=== PATIENT | female | born 1950 | race Two or more races ===

== ENCOUNTER 2020-02-18 14:59 | Inpatient (IN) | payer MEDICARE, OTHER ==
[~2020-02-18] VITALS: Ht 165.1 cm; Wt 73.5 kg
[2020-02-18] MEDS ORDERED: metformin (15:01)
[2020-02-18] MEDS ORDERED: SODIUM CHLORIDE 0.9% 1,000 ML IV ONE (15:29)
[2020-02-18 15:49] LABS: BASOPHILS % 0.4 % (0.0-2.0); EOSINOPHILS % 0.1 % (0.0-5.0); HEMATOCRIT. 35.1 % (36.0-48.0); HEMOGLOBIN. 11.8 g/dL (12.0-16.0); LYMPHOCYTES % 27.3 % (20.0-50.0); MEAN CORPUSCULAR HEMOGLOBIN 29.9 pg (28.0-32.0); MEAN CORPUSCULAR VOLUME 89.2 fL (81.0-99.0); MONOCYTES % 8.9 % (2.0-8.0); NEUTROPHILS % 63.3 % (40.0-76.0); PLATELET 181 x1000/uL (130-400); RED BLOOD CELL COUNT 3.94 mill/uL (4.2-5.4); RED CELL DISTRIBUTION WIDTH 13.2 % (11.6-14.6)
[2020-02-18 15:54] LABS: CHLORIDE 108 mEq/L (98-107)
[2020-02-18 15:58] LABS: INR 0.9; PROTHROMBIN TIME 9.8 sec (9.6-11.0)
[2020-02-18] MEDS ORDERED: DILTIAZEM HCL 5MG/ML 5ML VIAL IV ONE (16:45)
[2020-02-18 23:00] VITALS: BP 141/56
[2020-02-18 23:30] VITALS: BP 141/56
[2020-02-19] VITALS (7 sets, daily range): BP systolic 103–126; BP diastolic 48–67
[2020-02-19] MEDS ORDERED: DEXTROSE 50% WATER 50ML SYRINGE IV PRN (00:15)
[2020-02-19 01:22] LABS: CREATINE KINASE 112 IU/L (26-192)
[2020-02-19 01:23] LABS: CREATINE KINASE MB FRACTION 1.3 ng/mL (0.5-3.6)
[2020-02-19] MEDS: ACETAMINOPHEN 650MG/20.3ML UDC PO PRN ×3 (02:06→20:10)
[2020-02-19] MEDS ORDERED: IBUP-2029 PO (02:39)
[2020-02-19] MEDS ORDERED: PIOG45TA62 PO (02:39)
[2020-02-19] MEDS ORDERED: PRAV80TA21 PO (02:39)
[2020-02-19] MEDS ORDERED: PRED10TA PO (02:39)
[2020-02-19] MEDS ORDERED: LISI2.5T47 PO (02:39)
[2020-02-19] MEDS ORDERED: BACL-141 PO (02:39)
[2020-02-19] MEDS ORDERED: METF-414 PO (02:39)
[2020-02-19] MEDS: BLOOD SUGAR DIAGNOSTIC STRIP TEST SCH ×4 (07:33→21:07)
[2020-02-19] MEDS: INSULIN LISPRO 100 UNITS/ML SUBCUT SCH ×4 (08:17→21:00)
[2020-02-19 08:44] LABS: BASOPHILS % 0.4 % (0.0-2.0); EOSINOPHILS % 0.5 % (0.0-5.0); HEMATOCRIT. 35.7 % (36.0-48.0); LYMPHOCYTES % 23.4 % (20.0-50.0); MEAN CORPUSCULAR HEMOGLOBIN 29.7 pg (28.0-32.0); MEAN CORPUSCULAR VOLUME 88.8 fL (81.0-99.0); MEAN PLATELET VOLUME 8.7 fl (7.4-10.4); MONOCYTES % 10.1 % (2.0-8.0); NEUTROPHILS % 65.6 % (40.0-76.0); PLATELET 162 x1000/uL (130-400); RED BLOOD CELL COUNT 4.02 mill/uL (4.2-5.4); RED CELL DISTRIBUTION WIDTH 13.4 % (11.6-14.6)
[2020-02-19 09:01] LABS: CHLORIDE 109 mEq/L (98-107)
[2020-02-19] MEDS: ENOXAPARIN 40MG/0.4ML SYR SUBCUT SCH (09:01)
[2020-02-19] MEDS: METOPROLOL TARTRATE 50MG TABLET PO SCH ×2 (09:01→21:07)
[2020-02-19] MEDS: PANTOPRAZOLE 40MG DR TABLET PO SCH (09:01)
[2020-02-19 09:09] LABS: LDL CHOLESTEROL 104 mg/dL (5-100)
[2020-02-19 09:10] LABS: CREATINE KINASE 90 IU/L (26-192); HDL CHOLESTEROL 73 mg/dL (40-59); T4 FREE 1.18 ng/dL (0.76-1.46)
[2020-02-19] MEDS ORDERED: CEFTRIAXONE 1 G PREMIX 50 ML IV SCH (10:15)
[2020-02-19] MEDS: CEFTRIAXONE 1,000 MG in DEXTROSE 5% WATER 50 ML IV SCH (11:15)
[2020-02-19] MEDS: METFORMIN HCL 500MG TABLET PO SCH ×2 (11:15→17:49)
[2020-02-19] MEDS: ASPIRIN 81MG TABLET PO SCH (11:17)
[2020-02-19] MEDS ORDERED: OMEP20CA14 PO (14:54)
[2020-02-19] MEDS ORDERED: TIZA4CAP6 PO (14:57)
[2020-02-19 16:17] LABS: CLARITY URINE CLOUDY (CLEAR); COLOR URINE YELLOW (YELLOW); KETONES URINE NEGATIVE (NEGATIVE); LEUKOCYTE ESTERASE URINE NEGATIVE (NEGATIVE); NITRITE URINE NEGATIVE (NEGATIVE); OCCULT BLOOD URINE NEGATIVE (NEGATIVE); PH URINE 5.5 (4.5-8.0); PROTEIN URINE 1+ (NEGATIVE); SPECIFIC GRAVITY URINE 1.016 (1.005-1.030)
[2020-02-19] MEDS: ATORVASTATIN CALCIUM 20MG TABLET PO SCH (21:06)
[2020-02-19] MEDS ORDERED: INSULIN GLARGINE UD 100 UNITS/ML SYR SUBCUT SCH (22:00)
[2020-02-20] VITALS: BP 95/42
[2020-02-20 04:00] VITALS: BP 118/84
[2020-02-20] MEDS: BLOOD SUGAR DIAGNOSTIC STRIP TEST SCH ×4 (07:16→20:27)
[2020-02-20 08:00] VITALS: BP 121/83
[2020-02-20] MEDS: PANTOPRAZOLE 40MG DR TABLET PO SCH (08:46)
[2020-02-20] MEDS: ASPIRIN 81MG TABLET PO SCH (08:46)
[2020-02-20] MEDS: METOPROLOL TARTRATE 50MG TABLET PO SCH ×2 (08:46→21:00)
[2020-02-20] MEDS: METFORMIN HCL 500MG TABLET PO SCH ×2 (08:46→17:44)
[2020-02-20] MEDS: ENOXAPARIN 40MG/0.4ML SYR SUBCUT SCH (08:46)
[2020-02-20] MEDS: INSULIN LISPRO 100 UNITS/ML SUBCUT SCH ×4 (08:47→21:46)
[2020-02-20] MEDS ORDERED: MEDICATION NOT ON FORMULARY EA (Pravastatin Sodium 80 MG) PO SCH (09:00)
[2020-02-20] MEDS ORDERED: OMEPRAZOLE 20MG CAPSULE EXTENDED RELEASE PO SCH (09:00)
[2020-02-20] MEDS ORDERED: ENOXAPARIN 30MG/0.3ML SYR SUBCUT SCH (10:30)
[2020-02-20 12:00] VITALS: BP 102/55
[2020-02-20] MEDS: DEXAMETHASONE 2MG TABLET PO SCH (12:43)
[2020-02-20] MEDS: CEFTRIAXONE 1,000 MG in DEXTROSE 5% WATER 50 ML IV SCH (12:44)
[2020-02-20 16:00] VITALS: BP 112/49
[2020-02-20 20:00] VITALS: BP 106/57
[2020-02-20] MEDS: ENOXAPARIN 80MG/0.8ML SYR SUBCUT SCH (21:43)
[2020-02-20] MEDS: ATORVASTATIN CALCIUM 20MG TABLET PO SCH (21:43)
[2020-02-21] VITALS: BP 117/56
[2020-02-21 04:00] VITALS: BP 122/66
[2020-02-21] MEDS: BLOOD SUGAR DIAGNOSTIC STRIP TEST SCH ×2 (06:39→12:16)
[2020-02-21 08:00] VITALS: BP 138/51
[2020-02-21] MEDS: INSULIN LISPRO 100 UNITS/ML SUBCUT SCH ×2 (08:10→12:27)
[2020-02-21] MEDS: METFORMIN HCL 500MG TABLET PO SCH (09:04)
[2020-02-21] MEDS: ASPIRIN 81MG TABLET PO SCH (09:04)
[2020-02-21] MEDS: DEXAMETHASONE 2MG TABLET PO SCH (09:05)
[2020-02-21] MEDS: PANTOPRAZOLE 40MG DR TABLET PO SCH (09:05)
[2020-02-21] MEDS: METOPROLOL TARTRATE 50MG TABLET PO SCH (09:06)
[2020-02-21] MEDS: ENOXAPARIN 80MG/0.8ML SYR SUBCUT SCH (09:07)
[2020-02-21] MEDS ORDERED: AZITHROMYCIN 250 MG TABLET PO SCH (10:30)
[2020-02-21 12:00] VITALS: BP 107/72
[2020-02-21] MEDS: CEFTRIAXONE 1,000 MG in DEXTROSE 5% WATER 50 ML IV SCH (12:04)
[2020-02-21] MEDS ORDERED: ALBU90AE INH (12:08)
[2020-02-21] MEDS ORDERED: ASPI-1497 MT (12:08)
[2020-02-21] MEDS ORDERED: METO-539 MT (12:08)
[2020-02-21] MEDS ORDERED: METF-414 MT (12:08)
[2020-02-21] MEDS ORDERED: P20 PO (12:08)
[2020-02-21] MEDS ORDERED: APIX5TAB MT (12:08)
[2020-02-21] MEDS ORDERED: FAMO-135 PO (12:08)
[2020-02-21 13:18] VITALS: BP 107/72
== END 2020-02-21 14:59 | disposition home or self-care (01) | DRG 177 ==
LOC: ER 14:59 → EDBEDREQ 17:27 → EDBEDREQTM 17:27 → EDBEDREQ 19:01 → EDBEDREQTM 19:01 → ENRESERV 19:51 → EDBEDREQ 20:14 → 5WST 20:16 → 7WST 02-19 01:20
PROVIDERS: ADMIT Internal Medicine; ATTEND Internal Medicine
DX: U07.1 COVID-19 (principal); N17.0 Acute kidney failure with tubular necrosis; R65.11 Systemic inflammatory response syndrome (SIRS) of non-infectious origin with acute organ dysfunction; J12.89 Other viral pneumonia; E44.1 Mild protein-calorie malnutrition; I47.1 Supraventricular tachycardia; G90.8 Other disorders of autonomic nervous system; E11.9 Type 2 diabetes mellitus without complications; E87.8 Other disorders of electrolyte and fluid balance, not elsewhere classified; I10 Essential (primary) hypertension; Z90.49 Acquired absence of other specified parts of digestive tract; Z79.84 Long term (current) use of oral hypoglycemic drugs; Z79.899 Other long term (current) drug therapy; Z68.27 Body mass index [BMI] 27.0-27.9, adult; R06.03 Acute respiratory distress
CPT/HCPCS: 36415; 71045; 80053; 80061; 81003; 82550; 82553; 82962; 83036; 83880; 84439; 84443; 84484; 85025; 85379; 87635; 93005; 99291; J0696; J1650; J1815; J7030; J7060; J8540